=== PATIENT | female | born 1940 | race Caucasian/White ===

== ENCOUNTER 2017-05-27 08:45 | Inpatient (IN) | payer MEDICARE, MEDICAID ==
[~2017-05-27 08:45] MED LIST: ACETAMINOPHEN 1,000 MG/100 ML BTL IV ONE; CEFAZOLIN 2 Gram 2 GM/50 ML BAG IVPB ONE; FAMOTIDINE 20MG TABLET PO ONE; MECLIZINE 25 MG TABLET PO ONE; METOCLOPRAMIDE 10 MG TABLET PO ONE
[2017-05-27] MEDS ORDERED: LOPERAMIDE 2 MG CAPSULE PO PRN (13:37)
[2017-05-27] MEDS ORDERED: ZOLPIDEM TARTRATE 5 MG TABLET PO PRN (13:45)
[2017-05-27] MEDS ORDERED: AL HYDROX/MAG HYDROX 30ML UD PO PRN (13:45)
[2017-05-27] MEDS ORDERED: MAGNESIUM HYDROXIDE 30 ML UDC PO PRN (13:45)
[2017-05-27] MEDS ORDERED: ONDANSETRON HCL IV 4 MG/2 ML VIAL IVP PRN (13:45)
[2017-05-27] MEDS ORDERED: SENNOSIDES/DOCUSATE SODIUM UD CAPSULE PO PRN (13:45)
[2017-05-27] MEDS ORDERED: METOCLOPRAMIDE HCL 10 MG/2 ML VIAL IVP PRN (13:45)
[2017-05-27] MEDS ORDERED: DIPHENHYDRAMINE HCL 25 MG CAPSULE PO PRN (13:45)
[2017-05-27] MEDS ORDERED: TRANEXAMIC ACID 1,000 MG in 0.9 % SODIUM CHLORIDE 100ML 100 ML IVPB ONE (15:00)
[2017-05-27] MEDS: RINGERS SOLUTION,LACTATED 1,000 ML IV SCH (15:07)
[2017-05-27] MEDS: ACETAMINOPHEN 1,000 MG/100 ML BTL IV SCH ×2 (15:37→21:45)
[2017-05-27] MEDS: HYDRALAZINE HCL 25 MG TABLET PO SCH ×2 (15:37→21:45)
[2017-05-27] MEDS ORDERED: LIDOCAINE 2% MDV (20MG/ML) 20ML VIAL IV ONE (16:07)
[2017-05-27] MEDS ORDERED: HYDROMORPHONE HCL 2 MG/ML VIAL IV ONE (16:07)
[2017-05-27] MEDS ORDERED: MIDAZOLAM HCL 2MG/2ML VIAL IV ONE (16:07)
[2017-05-27] MEDS ORDERED: PROPOFOL 10 MG/ML VIAL IV ONE (16:07)
[2017-05-27] MEDS ORDERED: ONDANSETRON HCL IV 4 MG/2 ML VIAL IVP ONE (16:07)
[2017-05-27] MEDS ORDERED: FENTANYL PF 100MCG/2ML VIAL IV ONE (16:07)
[2017-05-27] MEDS ORDERED: DIPHENHYDRAMINE HCL IV 50 MG/ML VIAL IVP ONE (16:07)
[2017-05-27] MEDS ORDERED: TRANEXAMIC ACID 1,000 MG/10 ML ML IV ONE (16:16)
[2017-05-27] MEDS ORDERED: BUPIVACAINE 0.75% W/EPI MPF 30ML VIAL IVP ONE (16:16)
[2017-05-27] MEDS ORDERED: BUPIVACAINE LIPOSOME 266MG/20ML VIAL IV ONE (16:16)
[2017-05-27] MEDS: OXYCODONE HCL 5 MG TABLET PO PRN ×2 (16:47→20:47)
--- NOTE | 2017-05-27 18:06 | Rehab Evaluation ---
Patient Information - Patient Information Diagnosis: OA Right Knee Ordered Treatment: PT Evaluate and Treat Status: Initial Evaluation Surgery: Yes (R TKA) Date of Surgery: 05/27/17 History: Detail (Pt. reports slowly progressive worsening of sx right knee.) Past Med/Otilia Hx Detail: Detail (Pt. reports stable medical history and no related orthopedic surgeries prior to R TKA.) Past Medical/Surgical Hx: PAST MEDICAL/SURGICAL HISTORY Past Surgical History bilat cat tonsils PMH - Respiratory Hx Respiratory Disorders No PMH - Cardiovascular Hx Cardiovascular Disorders Yes Hx Hypertension Yes: on meds good control Exercise Tolerance Poor Comment: due to knee pain PMH - Neuro Hx Neurological Disorders Yes Hx Dizziness Yes: vertigo in the past Hx Headaches Yes: occass PMH - GI Hx Gastrointestinal Disorders No PMH - Hx Genitourinary Disorders No PMH - Endocrine Hx Endocrine Disorders Yes Hx Diabetes Yes Hx of NIDDM Yes Comment: checks once a week 100 - 140 HGBA1C 7 PMH - Musculoskeletal Hx Musculoskeletal Disorders Yes Hx Arthritis Yes Hx Fibromyalgia Yes PMH - Psych Hx Psychiatric Problems Yes Hx Anxiety Yes PMH - Hematology/Oncology Hx Hematology/Oncology No Disorders Premorbid Status: Detail (Slowly progressive) Social History: Detail (Pt. lives on the first floor of a condo with three steps leading in and hand rail on both sides. Pt. has a front wheeled walker, walk in shower with grab bars, single point cane, and she has a neighbor nearby who provides support.) Precautions: [place], Fall - Time With Patient Total Time Spent With Patient (Min): 50 Treatment Procedures: Detail (Physical Therapy Evaluation Completed. Pt. was left supine with call light available, B IPC, CPM attached, cryo RLE, and nursing was notified of pt.'s status.) Subjective Information - Subjective Information Per Patient (Pt. denied SOB, nasuea, and reported 0/10 pain at start of tx.) Objective Data - Pain Pain Present: No (Not at start of tx, but pain did increase to a 3/10 with standing, pain quickly went back down to 0/10 once supine in bed.) - Mental Status Patient Orientation: Oriented x3 - Visual Perception Appears within normal limits for therapeutic activities - ROM Within normal limits, Other (R knee flexion set at 0 degrees extension and 60 degrees flexion via CPM. LLE WFL all planes of movement.) - Strength/Tone Not within normal limits (R knee not tested due to pain. LLE WFL grossly.) - Coordination Appears within normal limits for therapeutic activities - Bed Mobility Needs Assist (Pt. required used of trapeeze, handrails, and therapist assistance (minimal) to position her RLE appropriately with bed mobility. She required verbal cues to use her L leg to help position to head of bed.) - Transfers Needs Assist (Pt. required minimal assistance with sit to supine and sit to stand transfer. She was I with stand to sit transfer.) - Balance Balance Sitting: Good (Pt. maintained midline positioning for more than 2 minutes while seated at bedside.) Balance Standing: Fair (Pt. exhibited trunk sway and was unable to bear equal weight while standing with front wheeled walker.) - Sensation Intact - Gait Detail (Not assessed.) - ADL's/IADL's Detail (Not assessed.) - Special Tests No Therapy Assessment - Therapy Assessment Detail (Pt. was not assessed for ambulation due to becoming nauseous during bed mobility. Pt. exhibits knee weakness and ROM restriction secondary to TKA and requires assistance with bed mobility and transfers to remain safe. She exhibited poor safety awareness with positioning of her operative LE.) Patient Education - Patient Education Teaching Topic: Disease Process, Precautions (Pt. was instructed to avoid twisting and torsional forces at the right tibia. She was instructed to avoid placing a pillow behind her knee.), Risk Factors Response: Return Demonstration, Verbalize Understanding Teaching Method: Discussion, Demonstration Teaching Recipient: Patient Barriers To Learning: None Problem List - Problem List Physical Therapy Problem List: Detail (1) LE weakness 2) Balance impairment 3) Inability to assess ambulation 4) Poor safety awareness 5) Difficulty with bed mobility and transfers) Goals - Goals Physical Therapy Goals: 1) Pt. will independently ambulated household distances with or without AD safely and not exhibit loss of balance. 2) Pt. will be independent with bed mobility and transfers. 3) Pt. will verbalize understanding of her post-surgical precautions and signs of infection. 4) Pt. will independently ascend and descend 3 steps without complication and she will demonstrate good understanding of leg advancement for safe stair use. 5). Pt. will be independent with her HEP. Prognosis - Prognosis Good (Pt. is expected to meet all inpatient PT goals and transition to her home environment.) Plan - Plan Physical Therapy Plan: Pt. will be seen 1-2x per day for inpatient PT until all goals met and she is safe for D/C to home environment.
[2017-05-27] MEDS: CEFAZOLIN 2 Gram 2 GM/50 ML BAG IVPB SCH (18:27)
[2017-05-27] MEDS: POTASSIUM CHLORIDE 10 MEQ TAB PO SCH (21:44)
[2017-05-27] MEDS: ASPIRIN 325 MG TAB ENTERIC-COATED PO SCH (21:45)
[2017-05-28] MEDS: OXYCODONE HCL 5 MG TABLET PO PRN ×3 (00:46→08:11)
[2017-05-28] MEDS: RINGERS SOLUTION,LACTATED 1,000 ML IV SCH ×2 (00:47→06:41)
[2017-05-28] MEDS: CEFAZOLIN 2 Gram 2 GM/50 ML BAG IVPB SCH ×2 (02:37→11:22)
[2017-05-28] MEDS: ACETAMINOPHEN 1,000 MG/100 ML BTL IV SCH (04:13)
[2017-05-28 07:12] LABS: HEMATOCRIT 33.9 % (35.0-47.0); HEMOGLOBIN 10.5 gm/dl (11.6-16.0); MEAN CELL VOLUME 100.3 fl (81-97); MEAN PLATELET VOLUME 10.5 fl (7.4-10.4); PLATELET COUNT 340 K/uL (130-400); RED BLOOD COUNT 3.38 M/uL (3.80-5.40); RED CELL DISTRIBUTION WIDTH 12.8 % (11.5-14.5); WHITE BLOOD COUNT W/O DIFF 11.4 K/uL (4.2-12.2)
[2017-05-28] MEDS ORDERED: GLIPIZIDE 5 MG TABLET PO SCH (08:00)
[2017-05-28] MEDS ORDERED: DULOXETINE HCL 30 MG CAPSULE.DR PO SCH (10:00)
[2017-05-28] MEDS ORDERED: LISINOPRIL 20 MG TABLET PO SCH (10:00)
[2017-05-28] MEDS ORDERED: HYDROCHLOROTHIAZIDE 25 MG TABLET PO SCH (10:00)
[2017-05-28] MEDS ORDERED: ATORVASTATIN 20 MG TABLET PO SCH (10:00)
[2017-05-28] MEDS: HYDRALAZINE HCL 25 MG TABLET PO SCH (10:08)
[2017-05-28] MEDS: ASPIRIN 325 MG TAB ENTERIC-COATED PO SCH (10:09)
[2017-05-28] MEDS: POTASSIUM CHLORIDE 10 MEQ TAB PO SCH (10:10)
--- NOTE | 2017-05-28 10:33 | Physical Therapy Tx Note ---
Physical Therapy Tx Note - Treatment Note Tolerated: Good Total Time Spent With Patient: 40 Physical Therapy Tx Note: Detail (Patient states right knee painful. Patient was reclined in bed upon LITERARY WRITER arrival. Patient agreeable to treatment. Patient transferred supine to sit CGA to support right LE. Patient transferred sit to and from stand CGA x1. Patient ambulated 84 feet with wheeled walker CGA x1. Patient ascended and descended 3 steps with using stairwell railing and walker CGA x1. Patient performed the following exercises x10 reps each: seated hip flexion, quad sets, glut squeezes, seated heel raises, seated toe raises, seated hip adductor squeeze, and seated heel slides. Patient transferred sit to and from stand SBA x1. Patient transferred sit to supine CGA to support right LE. Patient scooted up in bed independently. Patient displays good understanding of exercises, and stair climbing. Patient was left reclined in bed with cyro, intermittent pneumatic compression, and CPM. Patient discharged from inpatient physical therapy at this time due to all inpatient PT goals met.) Physical Therapy Problem List: Detail (1) LE weakness 2) Balance impairment 3) Inability to assess ambulation 4) Poor safety awareness 5) Difficulty with bed mobility and transfers) Physical Therapy Goals: 1) Pt. will independently ambulated household distances with or without AD safely and not exhibit loss of balance. 2) Pt. will be independent with bed mobility and transfers. 3) Pt. will verbalize understanding of her post-surgical precautions and signs of infection. 4) Pt. will independently ascend and descend 3 steps without complication and she will demonstrate good understanding of leg advancement for safe stair use. 5). Pt. will be independent with her HEP. Prognosis: Good Physical Therapy Plan: Patient discharged from inpatient PT at this time. All inpatient PT goals are met.
[2017-05-28] MEDS: HYDROMORPHONE HCL 1 MG/ML SYRINGE IVP PRN ×2 (11:19→11:35)
--- NOTE | 2017-05-28 12:31 | Operative Note ---
DATE OF SURGERY: 05/27/2017 Surgeon: Nicolas Stanley DO PREOPERATIVE DIAGNOSIS: Osteoarthritis of the right knee. POSTOPERATIVE DIAGNOSIS: Osteoarthritis of the right knee. OPERATION: Right total knee arthroplasty. PROCEDURE: This 76-year-old female was taken to the operating room and placed in the supine position on the operating room table. Spinal anesthesia was induced by the department of anesthesia. Following satisfactory anesthetic, the right lower extremity was elevated. It was prepped with Hibiclens and draped in the usual sterile fashion. Exsanguinated and the tourniquet inflated to 300 mmHg. All scrub personnel wore personal isolation suits. An anterior longitudinal midline incision was made followed by a medial parapatellar arthrotomy incision. An intracondylar drill hole was made for the intramedullary alignment santi, and a 5-degree valgus 10 mm cut was made on the distal femur. The wafer of bone was removed. Sizing jig was affixed and size 62.5 was seen to be the appropriate size. The 4-in-1 cutting block was then pinned in 3 degrees of external rotation. The appropriate cuts were made. We then directed our attention to the proximal tibia and an extramedullary alignment guide was used to cut the proximal tibia referencing a 10 mm cut off the lateral tibial plateau. Once the appropriate alignment had been assured, a 3-degree posterior slope cut was made in the proximal tibia, and the wafer of bone was removed. The tibia was sized to a size 71. The stem punch was used. The osteophytes were removed from the posterior aspect of the joint as well as remnants of the menisci. The tibia was sized to a 71 and a stem punch was used. We checked for soft tissue balance and found it to be equal. The patella was cut and restored to anatomic height with a 34 x 7.8 mm patella trial. The trial components were inserted. First the 10 mm bearing and subsequently the 11 which was seem to give us the best fit. The joint was copiously irrigated and debris removed from the joint. The bony surfaces were all dried and all components were cemented into place and excess cement removed after the insertion of each component. First the tibial baseplate was cemented followed by the insertion of the tibial bearing. Subsequently the femoral component and patella. Once the cement had hardened, the knee was again taken through range of motion and found to be stable. We had injected Exparel into the posterior, medial, and lateral corners of the joint prior to insertion of the final components and then after they were inserted, the remainder was injected into the periosteum and joint capsule of the proximal tibia and distal femur. The drain was placed through a separate stab incision. The arthrotomy incision was closed with a #2 Vicryl. The subcutaneous tissue was closed with 0 Vicryl and the skin was stapled. Sterile dressings were applied with Polar Care. The patient was taken to the recovery room in satisfactory condition. GROSS PATHOLOGY: This patient demonstrated very severe medial compartment osteoarthritis, full-thickness articular cartilage loss noted on both bony surfaces with the lateral compartment showing severe grade 4 changes noted the patellofemoral joint also again showing very severe grade 4 changes. Final components inserted were a [employer] Vanguard size 62.5 cruciate retaining femoral component, a 71 tibial baseplate, an 11 mm anterior stabilized bearing, and a 34 x 7.8 mm patella was used. CC: Dr. Idris BATES
[2017-05-28] MEDS ORDERED: OXYCODONE HCL/APAP 5MG/325MG TABLET PO PRN ×2 (13:35)
[2017-05-28] MEDS ORDERED: HYDROCODONE/APAP 5/325MG TABLET PO PRN ×2 (13:35)
[2017-05-28] MEDS ORDERED: ACETAMINOPHEN 325 MG TAB PO PRN (13:45)
--- NOTE | 2017-05-28 14:07 | Rehab Evaluation ---
Patient Information - Patient Information Diagnosis: OA Right Knee Ordered Treatment: OT Evaluate and Treat Status: Initial Evaluation Surgery: Yes (R TKA) Date of Surgery: 05/27/17 History: Detail (Pt. reports slowly progressive worsening of sx right knee.) Past Med/Otilia Hx Detail: Detail (Pt. reports stable medical history and no related orthopedic surgeries prior to R TKA.) Past Medical/Surgical Hx: PAST MEDICAL/SURGICAL HISTORY Past Surgical History bilat cat tonsils PMH - Respiratory Hx Respiratory Disorders No PMH - Cardiovascular Hx Cardiovascular Disorders Yes Hx Hypertension Yes: on meds good control Exercise Tolerance Poor Comment: due to knee pain PMH - Neuro Hx Neurological Disorders Yes Hx Dizziness Yes: vertigo in the past Hx Headaches Yes: occass PMH - GI Hx Gastrointestinal Disorders No PMH - Hx Genitourinary Disorders No PMH - Endocrine Hx Endocrine Disorders Yes Hx Diabetes Yes Hx of NIDDM Yes Comment: checks once a week 100 - 140 HGBA1C 7 PMH - Musculoskeletal Hx Musculoskeletal Disorders Yes Hx Arthritis Yes Hx Fibromyalgia Yes PMH - Psych Hx Psychiatric Problems Yes Hx Anxiety Yes PMH - Hematology/Oncology Hx Hematology/Oncology No Disorders Premorbid Status: Detail (Pt. was ind. with I/ADL's with difficulty d/t knee and back pain.) Social History: Detail (Pt. lives on the first floor of a condo with three steps leading in and hand rail on both sides. Pt. has a front wheeled walker, and a single point cane. Bathroom has a walk in shower with grab bars, built in seat, and hand held shower head. Pt. has a positive support system from neighbors and her son, who can assist prn.) Precautions: [place], Fall - Time With Patient Total Time Spent With Patient (Min): 25 Subjective Information - Subjective Information Per Patient Objective Data - Pain Pain Present: Yes (5/10 R knee pain with activity) - Mental Status Patient Orientation: Oriented x3 - Visual Perception Appears within normal limits for therapeutic activities - ROM Within normal limits (BUE WNL) - Strength/Tone Within normal limits (BUE WNL. RUE is 4/5 MMT (pt states is sore from IV and fatigued), and LUE 4+/5.) - Coordination Appears within normal limits for therapeutic activities - Bed Mobility Independent - Transfers Independent (sit<>stand EOB to walker and standard toilet to walker.) - Balance Balance Sitting: Good Balance Standing: Fair - Sensation Intact (BUE light touch intact fingertips) - ADL's/IADL's Detail (Pt. demo. ability to dress with min A to thread LLE while seated ( difficulty reaching low enough). Educ. was provided on adaptive dressing techniques, and use of a completion engineer to assist with LB dressing to maximize independence and safety. Pt. verbalized understanding. Pt. was modified ind. functional mobility bed<>bathroom using 2WW.) Therapy Assessment - Therapy Assessment Detail (Pt. would benefit from a completion engineer to maximize independence and safety with LB dressing. Pt. was educated where she can obtain one and how to use it. In-pt. OT services not recommended at this time. Pt. has a positive support system and a well-equipped environment for her recovery period.) Patient Education - Patient Education Teaching Topic: Community Resources, Equipment Use Response: Verbalize Understanding Teaching Method: Discussion Teaching Recipient: Patient, Family (son and neighbors) Barriers To Learning: None Problem List - Problem List Physical Therapy Problem List: Detail (1) LE weakness 2) Balance impairment 3) Inability to assess ambulation 4) Poor safety awareness 5) Difficulty with bed mobility and transfers) Goals - Goals Physical Therapy Goals: 1) Pt. will independently ambulated household distances with or without AD safely and not exhibit loss of balance. 2) Pt. will be independent with bed mobility and transfers. 3) Pt. will verbalize understanding of her post-surgical precautions and signs of infection. 4) Pt. will independently ascend and descend 3 steps without complication and she will demonstrate good understanding of leg advancement for safe stair use. 5). Pt. will be independent with her HEP. Prognosis - Prognosis Good Plan - Plan Physical Therapy Plan: Patient discharged from inpatient PT at this time. All inpatient PT goals are met. Occupational Therapy Plan: D/C from in pt. OT services at this time. Educ. was provided to call rehab dept. if Q's arise when pt. arrives home.
--- NOTE | 2017-06-01 10:50 | Discharge Summary ---
DATE OF ADMISSION: 05/27/2017 DATE OF DISCHARGE: 05/28/2017 ADMITTING DIAGNOSIS: Osteoarthritis of the right knee. DISCHARGE DIAGNOSIS: Osteoarthritis of the right knee. OPERATIVE PROCEDURE: Elective right total knee arthroplasty. HOSPITAL COURSE: This 76-year-old female was admitted to the hospital for elective total knee arthroplasty and tolerated the operative procedure well. She progressed satisfactorily with physical therapy and was cleared first postoperative day showing no sign of complication from the surgery. The patient will be discharged with outpatient physical therapy. She will wear her FAUSTINO hose during the day and remove them at night. She was instructed to take aspirin 325 mg p.o. daily for 2 weeks. She was given a prescription for Percocet 5/325 mg, #80, 1-2 every 6 hours as necessary for pain. Routine wound care instructions were given. Should she have any problems prior to being seen, she was instructed to call my office. JANA
== END 2017-05-28 14:32 | disposition home or self-care (01) | DRG 470 ==
LOC: MEDSURG 08:45
PROVIDERS: ADMIT Orthopaedic Surgery; ATTEND Orthopaedic Surgery
PROC: 0SRC069 Replacement of Right Knee Joint with Oxidized Zirconium on Polyethylene Synthetic Substitute, Cemented, Open Approach (ICD-10-PCS; principal; 2017-05-27 11:00)
DX: M17.11 Unilateral primary osteoarthritis, right knee (principal); D64.9 Anemia, unspecified; I10 Essential (primary) hypertension; E11.9 Type 2 diabetes mellitus without complications; Z79.84 Long term (current) use of oral hypoglycemic drugs; E78.00 Pure hypercholesterolemia, unspecified
CPT/HCPCS: 36416; 82607; 82746; 82948; 83550; 85025; 85044; 94761; 97110; 97165; 97530; J1170; J1200; J2405; J3490; J7120